=== PATIENT | female | born 1990 | race Caucasian/White ===

== ENCOUNTER 2020-12-19 21:32 | Emergency (ER) | payer SELFPAY ==
[~2020-12-19] VITALS: Ht 167.6 cm; Wt 61.4 kg
[2020-12-19 21:37] VITALS: TEMP 97.2
[2020-12-19] MEDS ORDERED: ATARAX 10MG10 MG/TAB PO (21:55)
[2020-12-19] MEDS ORDERED: LEXAPRO20 MG PO (21:55)
[2020-12-19] MEDS ORDERED: BUSPAR5 MG PO (21:56)
[2020-12-19 23:11] VITALS: BP 111/70; PULSE 77
[2020-12-19] MEDS ORDERED: ZOFRAN ODT4 MG PO (23:26)
[2020-12-19] MEDS ORDERED: NORCO 325 MG-51 TAB PO (23:26)
== END 2020-12-19 23:14 | disposition home or self-care (01) ==
LOC: COL.ER 21:32
DX: T23.201A Burn of second degree of right hand, unspecified site, initial encounter (principal); J45.909 Unspecified asthma, uncomplicated; X19.XXXA Contact with other heat and hot substances, initial encounter; Y93.G1 Activity, food preparation and clean up; Y92.511 Restaurant or cafe as the place of occurrence of the external cause; Y99.0 Civilian activity done for income or pay
CPT/HCPCS: J1170